=== PATIENT | male | born 1955 | race Caucasian/White ===

== ENCOUNTER 2017-05-21 10:27 | Outpatient (CLI) | payer MEDICARE ==
--- NOTE | 2017-05-21 12:03 | XRay Report ---
ROUTINE CHEST, TWO VIEWS: HISTORY: Cough. The trachea, heart, mediastinal contour, lung huffman and bony thorax are unremarkable. IMPRESSION: Unremarkable chest x-ray.
== END 2017-05-21 10:28 | disposition home or self-care (01) ==
LOC: XRAY 10:27
PROVIDERS: ATTEND Otolaryngology
DX: R05 Cough (principal)
CPT/HCPCS: 71020